=== PATIENT | male | born 1975 | race Caucasian/White ===

== ENCOUNTER 2019-04-13 10:16 | Emergency (ER) | payer MEDICAID, OTHER ==
[~2019-04-13] VITALS: Ht 188 cm; Wt 97.1 kg
--- NOTE | 2019-04-13 11:21 | NUR ---
PT CAME INTO THE ED C/O R KNEE PAIN SINCE WEDNESDAY. PT AAOX4, VSS, BREATHING EVEN AND UNLABORED ON ROOM AIR, AMBULATORY. AWAITING FOR MD ROOT
--- NOTE | 2019-04-13 11:40 | NUR ---
DR VILLA AT BEDSIDE
[2019-04-13] MEDS ORDERED: IBUPROFEN 600 MG TABLET PO ONE ×2 (11:49→12:00)
--- NOTE | 2019-04-13 14:08 | NUR ---
Patient discharged to home in stable condition. Written and verbal after care instructions given. Patient verbalizes understanding of instruction.
[2019-04-13 14:09] VITALS: BP 128/85
== END 2019-04-13 14:09 | disposition home or self-care (01) ==
LOC: ER 10:20
DX: M25.561 Pain in right knee (principal)
CPT/HCPCS: 73564-TC